=== PATIENT | female | born 1955 | race American Indian/Alaskan Native ===

== ENCOUNTER 2017-10-15 09:02 | Day surgery (SDC) | payer BC ==
[2017-10-15] MEDS ORDERED: NACL 0.9% 1000 ML 1,000 ML ONE (10:16)
[2017-10-15] MEDS ORDERED: DIPRIVAN 10 MG/ML IV ONE ×2 (10:59)
[2017-10-15] MEDS ORDERED: NACL 0.9% 1000 ML 1,000 ML IV SCH (11:00)
[2017-10-15] MEDS ORDERED: TYLENOL ONE (11:52)
--- NOTE | 2017-10-15 11:53 | Short Stay Summary ---
Short Stay Documentation Date of service: 10/15/17 Narrative H&P: Ms Silva presents for egd/colonoscopy. She has a h/o lymphoma, on oral chemo, with new onset diarrhea for several months. no significant abdominal pain. denies weight loss or gi bleeding. - History Past Medical History: other (see clinic note) Past Surgical History: Other (see clinic note) Social history: other (see clinic note) - Allergies and Medications Current Medications: Allergies Sulfa (Sulfonamide Antibiotics) Allergy (Verified 10/15/17 10:28) TONGUE, PALMS BURN AND ITCH, HIVES adhesive tape Adverse Reaction (Verified 10/15/17 10:28) PULLS SKIN OFF TEGADERM Adverse Reaction (Uncoded 10/15/17 10:28) PULLS SKIN OFF Home Medications Medication Instructions Recorded Confirmed Last Taken Type Furosemide [Lasix TAB] 20 mg PO QDAY 10/17/15 10/15/17 2 Months Ago History ~08/15/17 Hydrochlorothiazide [HCTZ] 25 mg PO QDAY 10/17/15 10/15/17 10/14/17 21:00 History Ibrutinib [Imbruvica] 1 tab PO QDAY 10/17/15 10/15/17 10/14/17 21:00 History Metoprolol [Lopressor TAB] 100 mg PO QDAY 10/17/15 10/15/17 10/14/17 21:00 History Potassium Chloride [K-Tab ER] 20 meq PO QDAY 10/17/15 10/15/17 10/14/17 21:00 History Ciprofloxacin HCl [Ciprofloxacin 1 tab PO BID 10/15/17 10/15/17 10/14/17 21:00 History TAB] Active Medications Sodium Chloride (Nacl 0.9% 1000 Ml) 1,000 mls @ 50 mls/hr IV DIRECT NATHANAEL - Physical exam General appearance: no acute distress, obese Heart: Regular rate, Normal S1, Normal S2 Gastrointestinal: normal Extremities: No edema - Brief post op/procedure progress note Date of procedure: 10/15/17 Pre-op diagnosis: change in bowel habits/diarrhea Post-op diagnosis: same (abnormal duodenal mucosa (biopsied) otherwise unremarkable upper endoscopy; diverticulosis, internal hemorrhoids) Procedure: 1. EGD with biopsies 2. Colonoscopy with biopsies Anesthesia: MAC Findings: EGD: white specks of unlikely significance in duodenum. biopsied. otherwise normal colonsocopy: tics, hemorrhoids, random bx's obtained. Surgeon: ANA LEONARD Estimated blood loss: minimal Pathology: list Specimen disposition: to lab Condition: stable - Hospital course Hospital course: Jar A - duodenal biopsies Jar B - random colon biopsies - Disposition Condition at discharge: Fair Disposition: DC-01 TO HOME OR SELFCARE Short Stay Discharge Plan Follow up with: BEATRIZ PEREZ MD [Primary Care Provider] - 7 Days
--- NOTE | 2017-10-15 11:58 | Operative Report ---
Operative Report Operative Report: Esophagogastroduodenoscopy Procedure Note with Biopsies Date of procedure: 10/15/2017 Endoscopist: Josiah Vu Pre-op diagnosis: diarrhea, change in bowel habits, h/o lymphoma Post-op diagnosis: white specks in duodenum, otherwise normal upper endoscopy Anesthesia: MAC Complications: No immediate complications Estimated blood loss: minimal Procedure: After consent was obtained, the patient was placed in the left lateral decubitus position. The fujinon endoscope was inserted into the patient 's mouth under direct vision, and advanced to the 2nd portion of duodenum without difficulty. The patient tolerated the procedure well. The views of the mucosa were good. Patient's vital signs were monitored continuously throughout the procedure. Findings: There were post-surgical changes (audra and prior anti-reflux surgery) seen in the lower esophagus. The stomach appeared normal. There were white specks throughout the visualized portion of duodenum of unclear significance. Multiple biopsies were obtained from the duodenum to rule out infection, lymphoma, and sprue. Impression: 1. White specks in duodenum of unclear significance. Biopsied. 2. Otherwise normal upper endoscopy Recommendations: -follow-up pathology -colonoscopy to follow
[2017-10-15] MEDS ORDERED: FLUSH HEPARIN IV ONE (12:00)
--- NOTE | 2017-10-15 12:02 | Operative Report ---
Operative Report Operative Report: Colonoscopy Procedure Note with Biopsies Date of procedure: 10/15/2017 Endoscopist: Josiah Vu Pre-op diagnosis: diarrhea, change in bowel habits Post-op diagnosis: diverticulosis, internal hemorrhoids, otherwise normal colonoscopy Anesthesia: MAC Complications: No immediate complications Estimated blood loss: minimal Procedure: After consent was obtained, the patient was placed in the left lateral decubitus position. The fujinon colonoscope was inserted into the patient's rectum under direct vision, and advanced to the cecum without difficulty. The patient tolerated the procedure well. The views of the mucosa were good. The quality of prep was good. The patient's vital signs were monitored continuously throughout the procedure. Findings: There were multiple scattered diverticula in the colon. Internal hemorrhoids were seen on retro-flexion view. Otherwise, the colon appeared normal. Multiple random biopsies were obtained from the colon. Impression: 1. Diverticulosis 2. Internal hemorrhoids 3. Otherwise unremarkable colonoscopy, multiple colon biopsies were obtained. Recommendations: -follow-up pathology -return to GI clinic as scheduled
[2017-10-15 12:08] VITALS: BP 123/58
--- NOTE | 2017-10-15 12:10 | Anesthesia Consultation ---
Anesthesia Consult and Med Hx Date of service: 10/15/17 - Airway Anesthetic Teeth Evaluation: Good ROM Head & Neck: Adequate Mental/Hyoid Distance: Adequate Mallampati Class: Class III Intubation Access Assessment: Possibly Difficult - Pulmonary Exam CTA: Yes - Cardiac Exam Cardiac Exam: RRR - Pre-Operative Health Status ASA Pre-Surgery Classification: ASA3 Proposed Anesthetic Plan: MAC - Cardiovascular System Hx Hypertension: Yes - Other Systems Hx Cancer: Yes (Lymphoma ) Hx Obesity: Yes
--- NOTE | 2017-10-15 12:10 | Anesthesia Day of Surgery ---
Anesthesia Day of Surgery - Day of Surgery Patient Examined: Yes Patient H&P Reviewed: Yes Patient is NPO: Yes Beta Blockers: Yes
== END 2017-10-15 09:03 | disposition home or self-care (01) ==
LOC: GIO 09:02
PROVIDERS: ATTEND Internal Medicine Gastroenterology
DX: K57.30 Diverticulosis of large intestine without perforation or abscess without bleeding (principal); K64.8 Other hemorrhoids; K29.80 Duodenitis without bleeding; I10 Essential (primary) hypertension; E66.9 Obesity, unspecified; Z85.72 Personal history of non-Hodgkin lymphomas; Z88.2 Allergy status to sulfonamides; Z91.048 Other nonmedicinal substance allergy status
CPT/HCPCS: 43239; 45380; 88305; J1642; J2704; J7030